=== PATIENT | female | born 2000 | race Asian ===

== ENCOUNTER 2020-01-04 10:44 | Emergency (ER) | payer BC ==
[2020-01-04] MEDS ORDERED: Iopamidol-370 76% 500 ML 1 ML ONE (11:01)
[2020-01-04 11:17] LABS: #Lymphocytes 0.6 thou/uL (1.20-3.40); #Monocytes 0.4 thou/uL (0.11-0.59); #Neutrophils 8.5 thou/uL (1.40-6.50); %Basophils 0.1 % (0.0-1.0); %Eosinophils 0.4 % (0.0-10.0); %Lymphocytes 6.3 % (28.0-48.0); %Monocytes 3.9 % (0.0-4.0); %Neutrophils 89.3 % (31.0-61.0); Hemoglobin 16.6 g/dL (12.0-16.0); Mean Corpuscular HGB CONC 33.9 g/dL (32.0-36.0); Mean Corpuscular Hemoglobin 30.5 pg (25.0-35.0); Mean Corpuscular Volume 89.9 fL (78.0-98.0); Mean Platelet Volume 7.2 fL (7.4-10.4); Platelet Count 253 thou/uL (130-400); RBC Distribution Width 11.8 % (11.5-14.5); Red Blood Cell (RBC) Count 5.45 mill/uL (4.00-5.20); White Blood Cell (WBC) Count 9.5 thou/uL (4.8-10.8)
[2020-01-04] MEDS ORDERED: Ondansetron PF 4 MG/2 ML Vial ONE (11:18)
[2020-01-04 11:42] LABS: ALT (SGPT) 13 U/L (8-55); AST (SGOT) 29 U/L (5-30); Albumin 5.2 g/dL (3.5-5.0); Alkaline Phosphatase 75 U/L (40-100); Anion Gap 16 mmol/L (10-20); BUN (Urea Nitrogen) 7 mg/dL (8.4-21.0); Bilirubin, Total 0.9 mg/dL (0.2-1.2); Calc. Creatinine Clearance 0 mL/min (70-130); Calcium 10.3 mg/dL (7.8-10.44); Carbon Dioxide 22 mmol/L (22-29); Chloride 103 mmol/L (98-107); Estimated GFR-MDRD 89; Globulin 3.9 g/dL (2.4-3.5); Glucose 93 mg/dL (70-105); Potassium 4.3 mmol/L (3.5-5.1); Protein, Total 9.1 g/dL (6.0-8.3); Sodium 137 mmol/L (136-145)
[2020-01-04 12:19] LABS: Bilirubin Negative (Negative); Blood, Urine Negative (Negative); Clarity Clear (Clear); Glucose, Urine (Dipstick) Normal (Negative); Leukocyte Negative Leu/uL (Negative); Nitrite Negative (Negative); Protein, Urine (Dipstick) 10 mg/dL (Neg-Trace); Urobilinogen Normal mg/dL (Less than 2)
[2020-01-04 12:21] LABS: Pregnancy Test - Urine (BHCG) Negative (Negative); Pregu Control Background? CLEAR/WHITE (CLR/WHITE); Pregu Control Bar Appear? YES (CONTROL BAR); Specific Gravity 1.017 (1.002-1.036)
--- NOTE | 2020-01-04 12:58 | ULT ---
Pelvic sonogram transabdominal imaging with duplex evaluation HISTORY: Pelvic pain. FINDINGS: Urinary bladder is decompressed, limiting visualization of pelvic structures. Uterus not visualized. No free fluid is evident within the pelvis. Left ovary obscured by bowel gas. Right ovary measures up to 3.4 cm. Normal appearance with good color and spectral Doppler flow. Patient could not tolerate transvaginal imaging. IMPRESSION: Very limited exam due to transabdominal only imaging and decompression the urinary bladde r. Uterus and left ovary not well visualized. No masses or free fluid evident. Normal appearance of the right ovary.
--- NOTE | 2020-01-04 14:17 | CT ---
CT OF THE ABDOMEN AND PELVIS WITH IV CONTRAST INDICATION: History of abdominal pain since 3:00 AM, nausea vomiting and weakness COMPARISON: Pelvic ultrasound dated January 04, 2020 FINDINGS: ABDOMEN: Lung bases: Clear Liver: No focal lesion. Gallbladder: Normal appearing. Pancreas: Normal. Adrenal glands: Normal. Spleen: Normal. Kidneys and ureters: Normal. No hydronephrosis. Vasculature: Normal. Lymph nodes:No lymphadenopathy. Free fluid in abdomen:No free fluid is evident. PELVIS: Small and large bowel: Normal Appendix:Normal Bladder: Decompressed Rectal and perirectal soft tissues:Normal. Reproductive structures: Normal. Free fluid in pelvis: No free fluid is evident. Lymphadenopathy pelvis: No lymphadenopathy is evident. Osseous structures: No acute osseous abnormality. No destructive osteolytic or osteoblastic lesion i s identified. Soft tissues:Normal. IMPRESSION: 1. No acute abnormality.
[2020-01-04] MEDS ORDERED: Morphine 2 MG/ML SYRINGE ONE (14:37)
== END 2020-01-04 14:55 | disposition home or self-care (01) ==
LOC: ERS 10:44
DX: K29.00 Acute gastritis without bleeding (principal); F41.9 Anxiety disorder, unspecified; F60.3 Borderline personality disorder
CPT/HCPCS: 74177; 76856; 80053; 81003; 81025; 85025; 93976; 96361; 96374; J2270; J2405; Q9967